=== PATIENT | female | born 1930 | race Caucasian/White ===

== ENCOUNTER 2017-10-16 19:46 | Inpatient (IN) | payer OTHER ==
--- NOTE | 2017-10-16 22:24 | PDOC ---
History of Present Illness - General History Source: Patient, Family Exam Limitations: No Limitations - History of Present Illness Initial Comments: 10/16/17 22:26 The patient is a 87 year old female, accompanied by family, with a significant past medical history of HTN, diabetes, and HLD who presents to the ED with complaints of generalized weakness and lightheadedness since earlier today. As per family, the patient did not go to orthodoxy this morning secondary to her not feeling well. Around 1pm earlier today, the patient had a sudden onset of generalized weakness and lightheadedness and is unable to walk secondary to feeling lightheaded. Patient reports a sudden onset of right arm and right leg tingling around 3:30pm, that resolved within 45 minutes. Family also states the patient had 5 episodes of vomiting and slight slurred speech since 4pm earlier today. Denies fever or chills. Denies headache. Denies chest pain or shortness of breath. Denies any other symptoms. <Jasmine Crowell - Last Filed: 10/16/17 22:58> <Radha Bailey - Last Filed: 10/17/17 01:24> - General Chief Complaint: Weakness Stated Complaint: WEAKNESS Time Seen by Provider: 10/16/17 21:44 Past History <Jasmine Crowell - Last Filed: 10/16/17 22:58> - Past Medical History COPD: No Dementia: Yes Diabetes: Yes HTN: Yes Hypercholesterolemia: Yes - Immunization History Immunization Up to Date: Yes - Suicide/Smoking/Psychosocial Hx Smoking History: Never smoked Have you smoked in the past 12 months: No Hx Alcohol Use: No Drug/Substance Use Hx: No Substance Use Type: None <Radha Bailey - Last Filed: 10/17/17 01:24> - Past Medical History Allergies/Adverse Reactions: Allergies Allergy/AdvReac Type Severity Reaction Status Date / Time No Known Allergies Allergy Verified 10/16/17 19:54 Home Medications: Ambulatory Orders Metformin HCl 500 mg PO BID 10/16/15 Simvastatin 10 mg PO DAILY 10/16/15 Ondansetron [Zofran *Odt*] 4 mg SL TID #30 od.tablet 10/17/15 Review of Systems - Review of Systems Able to Perform ROS?: Yes Comments:: 10/16/17 22:26 CONSTITUTIONAL: + generalized weakness Absent: fever, chills, diaphoresis, malaise, loss of appetite HEENT: Absent: rhinorrhea, nasal congestion, throat pain, throat swelling, difficulty swallowing, mouth swelling, ear pain, eye pain, visual Changes CARDIOVASCULAR: Absent: chest pain, syncope, palpitations, irregular heart rate, lightheadedness , peripheral edema RESPIRATORY: Absent: cough, shortness of breath, dyspnea with exertion, orthopnea, wheezing, stridor, hemoptysis GASTROINTESTINAL: + vomiting Absent: abdominal pain, abdominal distension, diarrhea, constipation, melena, hematochezia GENITOURINARY: Absent: dysuria, frequency, urgency, hesitancy, hematuria, flank pain, genital pain MUSCULOSKELETAL: Absent: myalgia, arthralgia, joint swelling SKIN: Absent: rash, itching, pallor HEMATOLOGIC/IMMUNOLOGIC: Absent: easy bleeding, easy bruising, lymphadenopathy, frequent infections ENDOCRINE: Absent: unexplained weight gain, unexplained weight loss, heat intolerance, cold intolerance NEUROLOGIC: + lightheadedness, arm and leg tingling, unsteady gait, slurred speech Absent: headache, seizure, mental status changes, bladder or bowel incontinence PSYCHIATRIC: Absent: anxiety, depression, suicidal or homicidal ideation, hallucinations. All Other Systems: Reviewed and Negative <Jasmine Crowell - Last Filed: 10/16/17 22:58> *Physical Exam - Vital Signs Last Vital Signs Temp Pulse Resp BP Pulse Ox 97.4 F L 70 18 143/59 96 10/16/17 19:50 10/16/17 19:50 10/16/17 19:50 10/16/17 19:50 10/16/17 19:50 - Physical Exam Comments: 10/16/17 22:26 GENERAL: + thin Awake and alert. No acute distress. HEENT: Normocephalic, atraumatic. PERRLA, EOMI. No conjunctival pallor. Sclera are non- icteric. Moist mucous membranes. Oropharynx is clear. NECK: Supple. Full ROM. No JVD. Carotid pulses 2+ and symmetric, without bruits. No thyromegaly. No lymphadenopathy. CARDIOVASCULAR: Regular rate and rhythm. No murmurs, rubs, or gallops. Distal pulses are 2+ and symmetric. PULMONARY: No evidence of respiratory distress. Lungs clear to auscultation bilaterally. No wheezing, rales or rhonchi. ABDOMINAL: Soft. Non-tender. Non-distended. No rebound or guarding. No organomegaly. Normoactive bowel sounds. MUSCULOSKELETAL Normal range of motion at all joints. No bony deformities or tenderness. No CVA tenderness. EXTREMITIES: No cyanosis. No clubbing. No edema. No calf tenderness. No pronator drift. SKIN: Warm and dry. Normal capillary refill. No rashes. No jaundice. NEUROLOGICAL: Alert, awake, appropriate. Cranial nerves 2-12 intact. No deficits to light touch and temperature in face, upper extremities and lower extremities. No motor deficits in the in face, upper extremities and lower extremities. Normoreflexic in the upper and lower extremities. Normal speech. Toes are down- going bilaterally. No facial asymmetry. PSYCHIATRIC: Cooperative. Good eye contact. Appropriate mood and affect. <Jasmine Crowell - Last Filed: 10/16/17 22:58> - Vital Signs Last Vital Signs Temp Pulse Resp BP Pulse Ox 97.4 F L 70 18 143/59 96 10/16/17 19:50 10/16/17 19:50 10/16/17 19:50 10/16/17 19:50 10/16/17 19:50 <Radha Bailey - Last Filed: 10/17/17 01:24> ED Treatment Course - LABORATORY CBC & Chemistry Diagram: 10/16/17 22:15 10/16/17 22:15 - RADIOLOGY Radiograph Interpretation: 10/16/17 22:58 EXAM: CT Head wo IMPRESSION: Mild chronic microvascular ischemic changes. Moderate age related involutional changes. The study is otherwise unremarkable. Reported by: Imaging sediment remediation consultant <Jasmine Crowell - Last Filed: 10/16/17 22:58> - LABORATORY CBC & Chemistry Diagram: 10/16/17 22:15 10/16/17 22:15 - RADIOLOGY Radiology Studies Ordered: Category Date Time Status HEAD CT (STROKE) [CT] Stat CT Scan 10/16/17 21:42 Ordered CHEST X-RAY PORTABLE* [RAD] Stat Radiology 10/16/17 21:43 Ordered <Radha Bailey - Last Filed: 10/17/17 01:24> *DC/Admit/Observation/Transfer - Attestations Scribe Attestion: 10/16/17 22:27 Documentation prepared by Jasmine Crowell, acting as medical director for Radha Bailey MD <Jasmine Crowell - Last Filed: 10/16/17 22:58> - Discharge Dispostion Decision to Admit order: Yes <Radha Bailey - Last Filed: 10/17/17 01:24> Diagnosis at time of Disposition: Hyperglycemia TIA (transient ischemic attack) Qualifiers: Transient cerebral ischemia type: unspecified Qualified Code(s): G45.9 - Transient cerebral ischemic attack, unspecified Vomiting Qualifiers: Vomiting type: unspecified Vomiting Intractability: non-intractable Nausea presence: unspecified Qualified Code(s): R11.10 - Vomiting, unspecified - Referrals Referrals: Clement Covarrubias MD [Primary Care Provider] - - Patient Instructions - Post Discharge Activity NIH Stroke Scale - Last Known Well Date/Time & Onset Date Last Known Well: 10/16/17 Time Last Known Well: 13:00 - Initial Evaluation Level of consciousness: Alert Ask patient the month and their age: Answers both correctly Ask patient to open & close eyes; make fist and let go: Obeys both correctly Best gaze (horizontal eye movement): Normal Visual field testing: No visual field loss Facial paresis (Show teeth/raise eyebrows/close eyes tight): Normal symmetrical movement Motor Function: Left Arm: Normal Motor Function: Right Arm: Normal (extends arm 90 (or 45) degrees for 10 seconds without drift Motor Function: Left Leg: Normal (extends leg 30 degrees for 5 seconds without drift) Motor Function: Right Leg: Normal (extends leg 30 degrees for 5 seconds without drift) Limb Ataxia: No ataxia Sensory(Use pinprick test arms,legs,trunk,face/side to side): Normal Best language (Describe picture, name items, read sentences): No Aphasia Dysarthria (read several words): Normal articulation Extinction and Inattention: No abnormality - Total Score NIH Stroke Scale Score: 0 <Radha Bailey - Last Filed: 10/17/17 01:24>
[2017-10-16 22:35] LABS: BASO % 0.2 % (0-2.0); HEMATOCRIT 39.5 % (32.4-45.2); HEMOGLOBIN 13.3 GM/dL (10.7-15.3); LYMPH % 7.9 % (8-40); MCH 30.4 pg (25.7-33.7); MCHC 33.6 g/dl (32.0-36.0); MEAN CELL VOLUME 90.5 fl (80-96); MEAN PLT VOLUME 9.4 fl (7.5-11.1); MONO % 2.8 % (3.8-10.2); NEUT % 89.1 % (42.8-82.8); PLATELET COUNT 171 K/MM3 (134-434); RBC 4.36 M/mm3 (3.60-5.2); RDW 13.3 % (11.6-15.6); WHITE BLOOD COUNT 8.7 K/mm3 (4.0-10.0)
[2017-10-16] MEDS: SODIUM CHLORIDE 1,000 ML IV SCH (22:43)
[2017-10-16 22:57] LABS: ALBUMIN 3.9 g/dl (3.4-5.0); ANION GAP 9 (8-16); BILIRUBIN,TOTAL 0.5 mg/dL (0.2-1.0); BLOOD UREA NITROGEN 20 mg/dL (7-18); CHLORIDE 102 mmol/L (98-107); CHOLESTEROL 139 mg/dL (50-200); CO2 26 mmol/L (21-32); CREATININE 0.9 mg/dL (0.55-1.02); POTASSIUM 4.3 mmol/L (3.5-5.1); SGOT/AST 19 U/L (15-37); SGPT/ALT 20 U/L (12-78); SODIUM 137 mmol/L (136-145); TOT PROT 7.7 g/dl (6.4-8.2); TRIGLYCERIDES 102 mg/dL (35-160)
[2017-10-16 22:58] LABS: ALK PHOS 64 U/L (45-117); HDL CHOLESTEROL 52 mg/dL (40-60)
[2017-10-16 22:59] LABS: GLUCOSE,RANDOM 340 mg/dL (74-106)
[2017-10-16 23:20] LABS: INR 1.17 (0.82-1.09); PROTHROMBIN TIME (PATIENT) 13.2 SEC (9.7-13.0)
--- NOTE | 2017-10-16 23:26 | PDOC ---
History of Present Illness - General Chief Complaint: Weakness Stated Complaint: WEAKNESS Time Seen by Provider: 10/16/17 21:44 Past History - Past Medical History Allergies/Adverse Reactions: Allergies Allergy/AdvReac Type Severity Reaction Status Date / Time No Known Allergies Allergy Verified 10/16/17 19:54 Home Medications: Ambulatory Orders Metformin HCl 500 mg PO BID 10/16/15 Simvastatin 10 mg PO DAILY 10/16/15 COPD: No Dementia: Yes Diabetes: Yes HTN: Yes Hypercholesterolemia: Yes - Immunization History Immunization Up to Date: Yes - Suicide/Smoking/Psychosocial Hx Smoking History: Never smoked Have you smoked in the past 12 months: No Hx Alcohol Use: No Drug/Substance Use Hx: No Substance Use Type: None *Physical Exam - Vital Signs Last Vital Signs Temp Pulse Resp BP Pulse Ox 97.4 F L 70 18 143/59 96 10/16/17 19:50 10/16/17 19:50 10/16/17 19:50 10/16/17 19:50 10/16/17 19:50 ED Treatment Course - LABORATORY CBC & Chemistry Diagram: 10/16/17 22:15 10/16/17 22:15 - ADDITIONAL ORDERS Additional order review: Laboratory Results 10/16/17 10/16/17 22:15 22:15 PT with INR 13.20 H INR 1.17 H Sodium 137 Potassium 4.3 Chloride 102 Carbon Dioxide 26 Anion Gap 9 BUN 20 H Creatinine 0.9 Creat Clearance w eGFR 58.95 Random Glucose 340 H* Calcium 9.0 Total Bilirubin 0.5 AST 19 ALT 20 Alkaline Phosphatase 64 Creatine Kinase 53 Troponin I < 0.02 Total Protein 7.7 Albumin 3.9 Triglycerides 102 Cholesterol 139 Total LDL Cholesterol 77 HDL Cholesterol 52 10/16/17 22:15 RBC 4.36 MCV 90.5 MCHC 33.6 RDW 13.3 MPV 9.4 Neutrophils % 89.1 H Lymphocytes % 7.9 L D Monocytes % 2.8 L Eosinophils % 0.0 D Basophils % 0.2 - RADIOLOGY Radiology Studies Ordered: Category Date Time Status HEAD CT (STROKE) [CT] Stat CT Scan 10/16/17 21:42 Taken CHEST X-RAY PORTABLE* [RAD] Stat Radiology 10/16/17 21:43 Ordered *DC/Admit/Observation/Transfer Diagnosis at time of Disposition: TIA (transient ischemic attack), Hyperglycemia, Vomiting - Referrals - Patient Instructions - Post Discharge Activity tPA Exclusion checklist 3-4.5h - Time Elapsed Date last known well: 10/16/17 Time last known well: 13:00 Elaspsed time: 1 Day(s) and 11 Hour(s) and 35 Minutes - Thrombolytic Therapy Candidate Is patient eligible for thrombolytic therapy: No - Exclusion Criteria 3-4.5 hr SBP greater than 185 or DBP greater than 110mmHg despite tx: No Recent IC/spinal surgery,head trauma or stroke<3mos.: No Hx IC hemorrhage, IC neoplasm, AV malformation or aneurysm: No Active internal bleeding: No Blding diathesis(low plt ct, inc PTT,INR>1.7 or use of NOAC): No Symptoms suggest subarachnoid hemorrhage: No CT demonstrates multilobar infarct(>1/3 cerebral hemiphere): No Arterial puncture at noncompressible site in previous 7 days: No Blood glucose concentration less than 50mg/dL (2.7mmol/L): No - Relative Exclusion Criteria 3-4.5 hr Life expectancy <1 yr or severe co-morbid illness: No : No Patient/family refused: No Rapid improvement: Yes Stroke severity too mild: Yes Recent acute DE (w/in previous 3 months): No Seizure at onset with postictal residual neuro impairments: No Major surgery or serious trauma w/in previous 14 days: No Recent GI or hemorrhage (w/in previous 21 days): No - Add'l Relative Exclusion 3-4.5 hr Age > 80: Yes Hx of both diabetes AND prior ischemic stroke: No Taking an oral anticoagulant regardless of INR: No NIHSS >25: No - Ineligibility reason(s) Reasons No tPA given: See reason(s) noted above (no focal neuro deficits upon arrival)
[2017-10-16 23:28] LABS: URINE APPEARANCE CLEAR; URINE BILIRUBIN NEGATIVE (<2.0 mg/dL); URINE COLOR STRAW; URINE GLUCOSE (UA) 3+ (NEGATIVE); URINE KETONE 1+ (NEGATIVE); URINE LEUK ESTERASE NEGATIVE (NEGATIVE); URINE NITRITE NEGATIVE (NEGATIVE); URINE PROTEIN NEGATIVE (NEGATIVE); URINE UROBILINOGEN NEGATIVE mg/dL (0.2-1.0)
[2017-10-17] MEDS ORDERED: ASPIRIN 81 MG CHEWABLE TABLETS PO ONE (01:27)
[2017-10-17] MEDS ORDERED: ASPIRIN 81 MG CHEWABLE TABLETS ONE (01:44)
[2017-10-17] MEDS ORDERED: ONDANSETRON 4 MG/2 ML VIAL IVPUSH ONE (01:51)
[2017-10-17] MEDS ORDERED: ONDANSETRON 4 MG/2 ML VIAL ONE (01:59)
[2017-10-17] MEDS: ONDANSETRON 4 MG/2 ML VIAL IVPUSH SCH ×3 (10:00→21:09)
--- NOTE | 2017-10-17 10:01 | CONSULT ---
Consult - text type - Consultation Consultation Note: Neurology History of Present Illness The patient is a 87 year old female, accompanied by family, with a significant past medical history of HTN, diabetes, and HLD who presents to the ED with reprotedly with complaints of generalized weakness and lightheadedness. As per notes, the patient did not go to orthodoxy this morning secondary to her not feeling well. Around 1pm earlier Tuesday, the patient had a sudden onset of generalized weakness and lightheadedness and is unable to walk secondary to feeling lightheaded. There was mention of sudden onset of right arm and right leg tingling around 3:30pm, that resolved within 45 minutes. Family also states the patient had 5 episodes of vomiting and slight slurred speech. She came to the hospital and was not considered TPA candidate as symptoms resolved. 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 Asked grandson this morning if she was taking ASA and states she does not. Started her on ASA 81, ordered MRI, Carotid Doppler, Echo, speech eval, PT. Of note her sugar was elevated to almost 350 and discussed this can cause significant neurologic changes that can mimic CVA like symptoms. Discussed with primary as well. - General Chief Complaint: Weakness Stated Complaint: WEAKNESS Time Seen by Provider: 10/16/17 21:44 Past History - Past Medical History COPD: No Dementia: Yes Diabetes: Yes HTN: Yes Hypercholesterolemia: Yes - Immunization History Immunization Up to Date: Yes - Suicide/Smoking/Psychosocial Hx Smoking History: Never smoked Have you smoked in the past 12 months: No Hx Alcohol Use: No Drug/Substance Use Hx: No Substance Use Type: None - Past Medical History Allergies/Adverse Reactions: Allergies Allergy/AdvReac Type Severity Reaction Status Date / Time No Known Allergies Allergy Verified 10/16/17 19:54 Home Medications: Ambulatory Orders Metformin HCl 500 mg PO BID 10/16/15 Simvastatin 10 mg PO DAILY 10/16/15 Ondansetron [Zofran *Odt*] 4 mg SL TID #30 od.tablet 10/17/15 Review of Systems CONSTITUTIONAL: + generalized weakness Absent: fever, chills, diaphoresis, malaise, loss of appetite HEENT: Absent: rhinorrhea, nasal congestion, throat pain, throat swelling, difficulty swallowing, mouth swelling, ear pain, eye pain, visual Changes CARDIOVASCULAR: Absent: chest pain, syncope, palpitations, irregular heart rate, lightheadedness , peripheral edema RESPIRATORY: Absent: cough, shortness of breath, dyspnea with exertion, orthopnea, wheezing, stridor, hemoptysis GASTROINTESTINAL: + vomiting Absent: abdominal pain, abdominal distension, diarrhea, constipation, melena, hematochezia GENITOURINARY: Absent: dysuria, frequency, urgency, hesitancy, hematuria, flank pain, genital pain MUSCULOSKELETAL: Absent: myalgia, arthralgia, joint swelling SKIN: Absent: rash, itching, pallor HEMATOLOGIC/IMMUNOLOGIC: Absent: easy bleeding, easy bruising, lymphadenopathy, frequent infections ENDOCRINE: Absent: unexplained weight gain, unexplained weight loss, heat intolerance, cold intolerance NEUROLOGIC: + lightheadedness, arm and leg tingling, unsteady gait, slurred speech Absent: headache, seizure, mental status changes, bladder or bowel incontinence PSYCHIATRIC: Absent: anxiety, depression, suicidal or homicidal ideation, hallucinations. All Other Systems: Reviewed and Negative *Physical Exam Vital Signs Period Temp Pulse Resp BP Sys/Campbell Pulse Ox Last 24 Hr 97.4 F-97.8 F 66-70 18-18 129-143/56-59 96-99 Awake and alert. No acute distress. HEENT: Normocephalic, atraumatic. PERRLA, EOMI. No conjunctival pallor. Sclera are non- icteric. Moist mucous membranes. Oropharynx is clear. NECK: Supple. Full ROM. No JVD. Carotid pulses 2+ and symmetric, without bruits. No thyromegaly. No lymphadenopathy. CARDIOVASCULAR: Regular rate and rhythm. No murmurs, rubs, or gallops. Distal pulses are 2+ and symmetric. PULMONARY: No evidence of respiratory distress. Lungs clear to auscultation bilaterally. No wheezing, rales or rhonchi. ABDOMINAL: Soft. Non-tender. Non-distended. No rebound or guarding. No organomegaly. Normoactive bowel sounds. MUSCULOSKELETAL Normal range of motion at all joints. No bony deformities or tenderness. No CVA tenderness. EXTREMITIES: No cyanosis. No clubbing. No edema. No calf tenderness. No pronator drift. SKIN: Warm and dry. Normal capillary refill. No rashes. No jaundice. NEUROLOGICAL: Alert, awake, appropriate. Slight R facial droop. No deficits to light touch and temperature in face, upper extremities and lower extremities. No motor deficits in the in face, upper extremities and lower extremities. Normoreflexic in the upper and lower extremities. Normal speech. Toes are down-going bilaterally. No facial asymmetry. PSYCHIATRIC: Cooperative. Good eye contact. Appropriate mood and affect. CBCD WBC 8.7 K/mm3 (4.0-10.0) 10/16/17 22:15 RBC 4.36 M/mm3 (3.60-5.2) 10/16/17 22:15 Hgb 13.3 GM/dL (10.7-15.3) 10/16/17 22:15 Hct 39.5 % (32.4-45.2) 10/16/17 22:15 MCV 90.5 fl (80-96) 10/16/17 22:15 MCHC 33.6 g/dl (32.0-36.0) 10/16/17 22:15 RDW 13.3 % (11.6-15.6) 10/16/17 22:15 Plt Count 171 K/MM3 (134-434) 10/16/17 22:15 MPV 9.4 fl (7.5-11.1) 10/16/17 22:15 CMP Sodium 137 mmol/L (136-145) 10/16/17 22:15 Potassium 4.3 mmol/L (3.5-5.1) 10/16/17 22:15 Chloride 102 mmol/L (98-107) 10/16/17 22:15 Carbon Dioxide 26 mmol/L (21-32) 10/16/17 22:15 Anion Gap 9 (8-16) 10/16/17 22:15 BUN 20 mg/dL (7-18) H 10/16/17 22:15 Creatinine 0.9 mg/dL (0.55-1.02) 10/16/17 22:15 Creat Clearance w eGFR 58.95 (>60) 10/16/17 22:15 Random Glucose 340 mg/dL (74-106) H* 10/16/17 22:15 Calcium 9.0 mg/dL (8.5-10.1) 10/16/17 22:15 Total Bilirubin 0.5 mg/dL (0.2-1.0) 10/16/17 22:15 AST 19 U/L (15-37) 10/16/17 22:15 ALT 20 U/L (12-78) 10/16/17 22:15 Alkaline Phosphatase 64 U/L (45-117) 10/16/17 22:15 Total Protein 7.7 g/dl (6.4-8.2) 10/16/17 22:15 Albumin 3.9 g/dl (3.4-5.0) 10/16/17 22:15 CARDIAC ENZYMES Creatine Kinase 53 IU/L (26-192) 10/16/17 22:15 Troponin I < 0.02 ng/ml (0.00-0.05) 10/16/17 22:15 - RADIOLOGY Radiograph Interpretation: EXAM: CT Head wo IMPRESSION: Mild chronic microvascular ischemic changes. Moderate age related involutional changes. 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 As per notes, the patient did not go to orthodoxy this morning secondary to her not feeling well. Around 1pm earlier Tuesday, the patient had a sudden onset of generalized weakness and lightheadedness and is unable to walk secondary to feeling lightheaded. There was mention of sudden onset of right arm and right leg tingling around 3:30pm, that resolved within 45 minutes. Family also states the patient had 5 episodes of vomiting and slight slurred speech. She came to the hospital and was not considered TPA candidate as symptoms resolved. 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 Started her on ASA 81, not taking at home Ordered MRI, Ordered Carotid Doppler, Echo, Ordered Speech eval PT ordered, as tolerated Glucose almost 350, can mimic CVA like symptoms, tighter glycemic control, A1C goal of <6 Monitor LDL (currently 77), continue Statin Monitor BP, goal range <160/90 for now, <130/80 as outpatient Hydration as tolerated, appears malnourished N/V, consider GI evaluation if indicated DVT ppx Discussed with primary as well.
[2017-10-17] MEDS: ASPIRIN COATED 81 MG TABLET.EC PO SCH (10:04)
--- NOTE | 2017-10-17 10:05 | PN ---
Progress Note, Physician Chief Complaint: pt seen in the ER C/o [facility] neurology seen the PT and rec MRI awaiting for MRI - Current Medication List Current Medications: Active Medications Aspirin (Ecotrin -) 81 mg PO DAILY TRISTAN Atorvastatin Calcium (Lipitor -) 10 mg PO HS TRISTAN Sodium Chloride (Normal Saline -) 1,000 mls @ 42 mls/hr IV ASDIR TRISTAN Last Admin: 10/16/17 22:43 Dose: 42 mls/hr Metformin HCl (Glucophage -) 500 mg PO BID@0700,1630 TRISTAN Ondansetron HCl (Zofran Injection) 4 mg IVPUSH Q6H TRISTAN - Objective Vital Signs: Vital Signs Temperature 97.8 F 10/17/17 07:05 Pulse Rate 66 10/17/17 07:05 Respiratory Rate 18 10/17/17 07:05 Blood Pressure 129/56 10/17/17 07:05 O2 Sat by Pulse Oximetry (%) 99 10/17/17 07:05 Constitutional: Yes: No Distress Eyes: Yes: Conjunctiva Clear HENT: Yes: Atraumatic Neck: Yes: Supple, Trachea Midline Cardiovascular: Yes: Regular Rate and Rhythm Respiratory: Yes: Regular, CTA Bilaterally Gastrointestinal: Yes: Normal Bowel Sounds, Soft, Vomiting Edema: No Peripheral Pulses WNL: Yes Neurological: Yes: Alert, Oriented, Cran Nerves II-XII Intact, Tingling ...Motor Strength: WNL Labs: CBC, BMP 10/16/17 22:15 10/16/17 22:15 INR, PTT INR 1.17 (0.82-1.09) H 10/16/17 22:15 - ....Imaging Chest X-ray: Report Reviewed Cat Scan: Report Reviewed MRI: Pending Assessment/Plan TIA Uncontrooled blood sugar Vomiting PLAN Awaiting MRI PT Zofran monitor Blood sugar Continue home meds
--- NOTE | 2017-10-17 11:45 | HP ---
DATE OF ADMISSION: DATE OF DICTATION: 10/17/2017 HISTORY: The patient is an 87-year-old female with a medical history of hypertension, diabetes, hyperlipidemia who came to the emergency room with the complaints of generalized weakness and lightheadedness since yesterday morning. As per the family, the patient yesterday around 1 PM yesterday developed sudden onset of generalized weakness and lightheadedness, and he was unable to walk secondary to feeling lightheaded. The patient also complains of sudden onset of right leg tingling around 3:30 PM yesterday that resolved within 45 minutes. After that, the patient complained of 5 episodes of vomiting and slight slurred speech yesterday. Denies any chest pain, headache, palpitations. No shortness of breath. PAST MEDICAL HISTORY: History of diabetes, hypertension, hypercholesterolemia. PAST SURGICAL HISTORY: History of hysterectomy. ALLERGIES: No known drug allergies. PERSONAL HISTORY: Nothing significant. Lives with the family. MEDICATIONS: The patient is on metformin 500 mg p.o. b.i.d., simvastatin 10 mg p.o. daily, and Zofran. REVIEW OF SYSTEMS: Constitutional: Generalized weakness present. No fever, no chills. Head and Neck: No cough, no rhinorrhea. Cardiovascular: No chest pain, no syncope, no palpitations. Gastrointestinal: Vomiting present. Respiratory: No cough. No shortness of breath. Genitourinary: No dysuria, no frequency, no urgency, no hesitancy. Musculoskeletal: Slight weakness. Hematologic: Nothing significant. Neurologic: Lightheadedness. Right arm and leg tingling. A slight unsteady gait. Absent headache. PHYSICAL EXAMINATION: Vital Signs: On examination of the patient in the emergency room, temperature 97.4, pulse 70 per minute, respirations 18, blood pressure 143/59, pulse 96. General: The patient is alert and oriented in no apparent distress. HEENT: Normocephalic and atraumatic. Pupils equally reactive to light and accommodation. Neck: Supple. No JVD. Full range of movement. Cardiovascular: First and 2nd sound normal. No murmur. Respiratory: Bilateral breath sounds normal. Abdomen: Soft. No tenderness. No distention. Bowel sounds present. Musculoskeletal: Normal range of movement. Extremities: No edema. Neurologic: The patient is alert, awake. Cranial nerves 2-12 are intact. No definite deficits of light touch. Temperature normal. No motor or sensory deficit. Reflexes normal. Toes are downgoing bilaterally. No facial asymmetry. Psychiatric: The patient is cooperative with eye contact. Appropriate mood and affect. LABORATORIES: CBC: WBC 8.7, hemoglobin 13.3, hematocrit 39.5, platelets 171. Chemistry: Sodium 137, potassium 4.3, chloride 102, bicarbonate 26, BUN 20, creatinine 0.9, sugar 340, lactic acid 1.7. ALT and AST normal. Cardiac enzymes x1 normal. Lipid profile: Triglycerides 102, total cholesterol 139, HDL 22, LDL 77. PT 13.2, INR 1.12. Chest x-ray: Scoliosis. Large heart. Prominent high and elevated left hemidiaphragm with some new atelectatic changes and pleural reaction at the lung base. Maybe right mid lung peripheral granuloma. CT of the head shows no evidence of acute intracranial hemorrhage, edema, midline shift, mass affect, or skull fracture. No CT evidence of acute ischemic changes, old infarct. The head of the left caudate nucleus, chronic, subcortical white matter changes. HOSPITAL COURSE: The patient was given IV fluid, Zofran, and aspirin in the emergency room. The patient admitted to the floor. ADMITTING DIAGNOSES: 1. Transient ischemic attack.,R/o CVA 2. Uncontrolled diabetes. 3. Generalized weakness. PLAN: Neurology consult. Continue home medications. Monitor blood sugar. Neurology consult. Continue aspirin. Physical therapy. The patient is stable. JESSICA ENGLAND M.D. [id number] MTDD
--- NOTE | 2017-10-17 11:56 | CONSULT ---
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), Medical Record Limitations to Obtaining History: Language Barrier - Smoking History Smoking history: Never smoked Have you smoked in the past 12 months: No - Alcohol/Substance Use Hx Alcohol Use: No History - Admission Reason For Visit: TRANSIENT CEREBRAL ISCHEMIA HYPERGLYCEMI - Diagnostics CT Scan: Report Reviewed MRI: Pending - General Mental Status: Alert and Oriented, Awake and Alert, Able to Follow Commands Attention: Intact Ability to Follow Directions: Good Head/Neck Control: Good - Hearing Hearing: Functional Speech Evaluation - Communication Communication: Yes: Within Normal Limits Oral Expression Ability: Yes: Mild Impairment - Speech Production Able to Make Needs Known: Yes: Mildly Impaired Intelligibility: Yes: Mildly Impaired - Speech Characteristics Voice Loudness: Mildly Soft/Quiet Voice Pitch: Yes: Normal Voice Phonatory-based Quality: Yes: Normal Nasal Resonance: Normal Articulation: Yes: Imprecise (mild) - Language/Auditory Comprehension Follows: Yes: 1 Stage Simple Commands - Language/Verbal Expression Able to Respond to Simple Queries: Yes: WNL Able to Communicate Wants and Needs: Yes: WNL Functional Communication Status: Yes: WNL - Swallow Evaluation/Bedside Assessment Current Nutritional Intake: Regular, Thin Liquids, Other (Diet not initiated but ordered. Vomited after drinking water earlier, per pt's grandson) Oral Secretions: Yes: WFL Dentition: Yes: Missing Teeth Facial Symmetry at Rest: Facial Droop Right (slight, noted mostly during speech production) Facial Symmetry on Retraction: Facial Droop Right (slight) Jaw Position: Closed at Rest Pucker Lips: Droops Right (slight) Lingual Movement: Symmetric Lingual Movement Strgth Against Opposition: Reduced Velopharyngeal Movement: Normal Laryngeal Movement: Able to Palpate Rate of Intake: WFL Labial Seal: WFL Oral Prep Time: WFL A-P Transit: WFL Pocketing: None Timing of Swallow: Delayed Coughing/Throat Clear: No (c/o puree sticking in pharynx) Change in Voice: No Recommendations - Speech Evaluation, Impression/Plan Impression: Mild r facial, noted most easily while speaking. Mild dysarthria. Leaning to right? right handshake strong and can elevate and maintain both UE' s.c/o puree sticking in pharynx. No cough with single sips if water. Vomited earlier with water, but tolerated during my assessment. Fully oriented but c/o feeling weak. Denies visual changes. No drooling. MRI pending. - Dysphagia Impressions/Plan Dysphagia Impressions: Mild Impairment, Ongoing Evaluation *Silent aspiration: cannot be R/O at bedside Dysphagia Treatment Plan: Chin Tuck/Down, Elevate HOB during feed Recommendations: Modified Barium Swallow (if deficits continue) - Recommendations Diet Consistency: Dysphagia Pureed (yogurt, pudding, ice cream, soup, as tolerated. If c/o food sticking, hold po.) Medication Administration: Crushed with applesauce Liquids: Thin Liquids Supplement: Glucerna
--- NOTE | 2017-10-17 13:01 | CON.CARD ---
Consult Consult Specialty:: Cardiology Referred by:: Dr. Covarrubias Reason for Consultation:: Cardiac evaluation - History of Present Illness Chief Complaint: Genearlized weakness History of Present Illness: Patient is an 87 year old female of [place] with underlying history of hypertension, hypercholesterolemia and diabetes mellitus who presents with generalized weakness and lightheadedness. Her symptoms occurred yesterday. She was found unable to walk well and was noticed to be leaning toward the right. she also had sudden onset of right arm and right leg tingling and numbness. She also had episode of vomiting and slurred speech. 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 History of obtained from her family as there is a language barrier. She denies chest pain,shortness of breath or palpitations. Denies fever or chills. Denies paroxysmal nocturnal dyspne or orthopnea. Denies headache or lightheadedness. She does not appear to have had a syncopal episode - History Source History Provided By: Patient, Family Member, Medical Record Limitations to Obtaining History: Clinical Condition - Past Medical History Cardio/Vascular: Yes: HTN, Hyperlipdemia Endocrine: Yes: Diabetes Mellitus - Past Surgical History Past Surgical History: Yes: Cataract Removal, Hysterectomy - Alcohol/Substance Use Hx Alcohol Use: No - Smoking History Smoking history: Never smoked Have you smoked in the past 12 months: No Home Medications - Allergies Allergies/Adverse Reactions: Allergies Allergy/AdvReac Type Severity Reaction Status Date / Time No Known Allergies Allergy Verified 10/16/17 19:54 - Home Medications Home Medications: Ambulatory Orders Metformin HCl 500 mg PO BID 10/16/15 Simvastatin 10 mg PO DAILY 10/16/15 Family Disease History - Family Disease History Family History: Unremarkable Review of Systems - Review of Systems Constitutional: denies: Chills, Fever Cardiovascular: denies: Chest Pain, Palpitations, Shortness of Breath Respiratory: denies: Cough, Hemoptysis, Orthopnea, PND, SOB, SOB on Exertion Neurological: reports: Change in Speech, Numbness, Unsteady Gait, Weakness. denies: Dizziness, Headache, Seizure, Syncope Vital Signs: Vital Signs Temperature 97.8 F 10/17/17 07:05 Pulse Rate 66 10/17/17 07:05 Respiratory Rate 18 10/17/17 07:05 Blood Pressure 129/56 10/17/17 07:05 O2 Sat by Pulse Oximetry (%) 99 10/17/17 07:05 HENT: Yes: Atraumatic Neck: Yes: Supple Respiratory: Yes: Diminished Gastrointestinal: Yes: Normal Bowel Sounds, Soft. No: Tenderness Cardiovascular: Yes: Regular Rate and Rhythm. No: Gallop JVD: No Carotid Bruit: No PMI: Non-Displaced Heart Sounds: Yes: S1, S2 Murmur: No: Systolic Murmur Edema: No - Other Data Labs, Other Data: CBC, BMP 10/16/17 22:15 10/16/17 22:15 INR, PTT INR 1.17 (0.82-1.09) H 10/16/17 22:15 Troponin, BNP 10/16/17 22:15 Troponin I < 0.02 Echo: Pending Imaging - Results Chest X-ray: Report Reviewed (Cardiomegaly) Cat Scan: Report Reviewed (Head CT: Old caudate nucleus infarct) Ultrasound: Report Reviewed (Carotid US: 50-60% left ICA stenosis) EKG: Report Reviewed Problem List - Problems (1) CVA (cerebral vascular accident) Code(s): I63.9 - CEREBRAL INFARCTION, UNSPECIFIED Qualifiers: CVA mechanism: unspecified Qualified Code(s): I63.9 - Cerebral infarction, unspecified (2) HTN (hypertension) Code(s): I10 - ESSENTIAL (PRIMARY) HYPERTENSION Qualifiers: Hypertension type: essential hypertension Qualified Code(s): I10 - Essential (primary) hypertension (3) Hypercholesterolemia Code(s): E78.00 - PURE HYPERCHOLESTEROLEMIA, UNSPECIFIED (4) Diabetes mellitus Code(s): E11.9 - TYPE 2 DIABETES MELLITUS WITHOUT COMPLICATIONS (5) TIA (transient ischemic attack) Code(s): G45.9 - TRANSIENT CEREBRAL ISCHEMIC ATTACK, UNSPECIFIED Qualifiers: Transient cerebral ischemia type: unspecified Qualified Code(s): G45.9 - Transient cerebral ischemic attack, unspecified Assessment/Plan 1. CVA/TIA with right sided weakness 2. Hypertension 3. Hypercholesterolemia 4. Diabetes mellitus 5. Carotid artery disease PLAN: 1.Continue Statin therapy 2. Add ASA 3. Consider ACEI or ARB if tolerated 4. Continue with diabetes mellitus regimen 5. Transthoracic echocardiograhy to assess LV/RV and valvular function 6. Neuro input noted 7. Carotid Doppler noted Further plans are to follow Del Maharaj MD
[2017-10-17] MEDS: metFORMIN HCL 500 MG TABLET (FP) PO SCH (18:33)
[2017-10-17 18:48] VITALS: BMI 19.1
[2017-10-17] MEDS: ATORVASTATIN CA 10 MG TABLET (FP) PO SCH (21:09)
[2017-10-17] MEDS: INSULIN SLIDING SCALE (NOVOLOG) 1 VIAL SQ SCH (21:10)
--- NOTE | 2017-10-17 23:45 | EKG ---
Test Reason : Blood Pressure : / mmHG Vent. Rate : 071 BPM Atrial Rate : 071 BPM P-R Int : 214 ms QRS Dur : 084 ms QT Int : 430 ms P-R-T Axes : 056 023 056 degrees QTc Int : 467 ms SINUS RHYTHM WITH 1ST DEGREE A-V BLOCK POSSIBLE LEFT ATRIAL ENLARGEMENT BORDERLINE ECG WHEN COMPARED WITH ECG OF 17-OCT-2015 00:10, PREMATURE VENTRICULAR COMPLEXES ARE NO LONGER PRESENT Confirmed by BRIGIDA IRIZARRY, JESIKA ([id number]) on 10/17/2017 11:45:10 PM Referred By: Confirmed By:JESIKA ALLRED MD
[2017-10-18] MEDS: SODIUM CHLORIDE 1,000 ML IV SCH ×2 (05:31→23:49)
[2017-10-18] MEDS: ONDANSETRON 4 MG/2 ML VIAL IVPUSH SCH ×4 (05:31→21:00)
[2017-10-18] MEDS ORDERED: INSULIN (NOVOLOG) ASPART 100 UNITS/ML 10ML VIAL ONE ×3 (06:26→20:45)
[2017-10-18] MEDS: metFORMIN HCL 500 MG TABLET (FP) PO SCH ×2 (06:33→17:21)
[2017-10-18] MEDS: INSULIN SLIDING SCALE (NOVOLOG) 1 VIAL SQ SCH ×4 (06:33→21:01)
[2017-10-18 06:46] LABS: BASO % 0.3 % (0-2.0); EOS % 0.7 % (0-4.5); HEMATOCRIT 40.3 % (32.4-45.2); HEMOGLOBIN 13.6 GM/dL (10.7-15.3); LYMPH % 16.1 % (8-40); MCHC 33.8 g/dl (32.0-36.0); MEAN CELL VOLUME 91.8 fl (80-96); MEAN PLT VOLUME 9.7 fl (7.5-11.1); MONO % 7.2 % (3.8-10.2); NEUT % 75.7 % (42.8-82.8); PLATELET COUNT 173 K/MM3 (134-434); RBC 4.39 M/mm3 (3.60-5.2); RDW 13.6 % (11.6-15.6); WHITE BLOOD COUNT 9.5 K/mm3 (4.0-10.0)
[2017-10-18 07:09] LABS: ALBUMIN 3.4 g/dl (3.4-5.0); ALK PHOS 48 U/L (45-117); ANION GAP 7 (8-16); BILIRUBIN,TOTAL 0.6 mg/dL (0.2-1.0); BLOOD UREA NITROGEN 16 mg/dL (7-18); CALCIUM 8.4 mg/dL (8.5-10.1); CHLORIDE 107 mmol/L (98-107); CO2 27 mmol/L (21-32); CREATININE 0.9 mg/dL (0.55-1.02); GLUCOSE,RANDOM 215 mg/dL (74-106); MAGNESIUM 1.7 mg/dL (1.8-2.4); POTASSIUM 3.9 mmol/L (3.5-5.1); SGOT/AST 15 U/L (15-37); SGPT/ALT 16 U/L (12-78); SODIUM 141 mmol/L (136-145); TOT PROT 6.9 g/dl (6.4-8.2)
--- NOTE | 2017-10-18 07:11 | PN ---
Progress Note, Physician Chief Complaint: Pt seen and examined Rt sided weakness still present afebrile,alert and oriented,no progression of symptoms C/o generalised michelle neurology seen the PT and rec MRI awaiting for MRI speech and swollow evaluation reprt noted,rec purie diet cardiology report appreciated carotid doppler report noted,Lt internal carotid artery 50_66% stenosis - Current Medication List Current Medications: Active Medications Aspirin (Ecotrin -) 81 mg PO DAILY [facility] Last Admin: 10/17/17 10:04 Dose: 81 mg Atorvastatin Calcium (Lipitor -) 10 mg PO HS [facility] Last Admin: 10/17/17 21:09 Dose: 10 mg Sodium Chloride (Normal Saline -) 1,000 mls @ 42 mls/hr IV ASDIR [facility] Last Admin: 10/18/17 05:31 Dose: 42 mls/hr Insulin Aspart (Novolog Vial Sliding Scale -) 1 vial SQ ACHS [facility] PRN Reason: Protocol Last Admin: 10/18/17 06:33 Dose: 2 units Metformin HCl (Glucophage -) 500 mg PO BID@0700,1630 [facility] Last Admin: 10/18/17 06:33 Dose: 500 mg Ondansetron HCl (Zofran Injection) 4 mg IVPUSH Q6H [facility] Last Admin: 10/18/17 05:31 Dose: 4 mg - Objective Vital Signs: Vital Signs Temperature 98 F 10/18/17 06:19 Pulse Rate 69 10/18/17 06:19 Respiratory Rate 18 10/18/17 06:19 Blood Pressure 166/62 10/18/17 06:19 O2 Sat by Pulse Oximetry (%) 95 10/17/17 21:00 Constitutional: Yes: No Distress Eyes: Yes: Conjunctiva Clear HENT: Yes: Atraumatic Neck: Yes: Supple Cardiovascular: Yes: Regular Rate and Rhythm Respiratory: Yes: Regular, CTA Bilaterally Gastrointestinal: Yes: Normal Bowel Sounds, Soft Genitourinary: Yes: WNL Musculoskeletal: Yes: Other (Rt sided weakness) Extremities: Yes: WNL Edema: No Peripheral Pulses WNL: Yes Neurological: Yes: Alert, Oriented, Cran Nerves II-XII Intact, Weakness (Rt sided mild weakness) Psychiatric: Yes: WNL, Alert Labs: CBC, BMP 10/18/17 06:20 INR, PTT INR 1.17 (0.82-1.09) H 10/16/17 22:15 - ....Imaging Chest X-ray: Report Reviewed Cat Scan: Report Reviewed EKG: Report Reviewed Assessment/Plan TIA/CVA Uncontrooled blood sugar/DM Vomiting resolved PLAN Awaiting MRI PT monitor BP monitor Blood sugar Continue home meds
--- NOTE | 2017-10-18 08:42 | PN ---
Progress Note (short form) - Note Progress Note: Chief Complaint: Events noted, notes reviewed, family member at the bedside, complaining of persistent weakness, denies any chest pain or dyspnea History of Present Illness: Seen nad examined on telemetry. Events noted, notes reviewed, family member at the bedside, complaining of persistent weakness, denies any chest pain or dyspnea Echocardiography revealed normal LV size and function with LVEF 55-60%, severe LA dilatation, modertae MR, AI and TR with no evidence of pulmonary HTN Medications: Current Medications Aspirin (Ecotrin -) 81 mg PO DAILY [facility] Last Admin: 10/17/17 10:04 Dose: 81 mg Atorvastatin Calcium (Lipitor -) 10 mg PO HS [facility] Last Admin: 10/17/17 21:09 Dose: 10 mg Sodium Chloride (Normal Saline -) 1,000 mls @ 42 mls/hr IV ASDIR [facility] Last Admin: 10/18/17 05:31 Dose: 42 mls/hr Insulin Aspart (Novolog Vial Sliding Scale -) 1 vial SQ ACHS [facility] PRN Reason: Protocol Last Admin: 10/18/17 06:33 Dose: 2 units Losartan Potassium (Cozaar -) 50 mg PO DAILY [facility] Metformin HCl (Glucophage -) 500 mg PO BID@0700,1630 [facility] Last Admin: 10/18/17 06:33 Dose: 500 mg Ondansetron HCl (Zofran Injection) 4 mg IVPUSH Q6H [facility] Last Admin: 10/18/17 05:31 Dose: 4 mg Review of Systems - Review of Systems Constitutional: denies: Chills or Fever Cardiovascular: as noted above Respiratory: denies: Cough or Sputum Production Neurological: reports: Change in Speech and Unsteady Gait with Weakness. denies : Dizziness, Headache, Seizure or Syncope Vital Signs: Last Vital Signs Temp Pulse Resp BP Pulse Ox 98 F 69 18 166/62 95 10/18/17 06:19 10/18/17 06:19 10/18/17 06:19 10/18/17 06:19 10/17/17 21:00 Intake & Output 10/15/17 10/16/17 10/17/17 10/18/17 23:59 23:59 23:59 23:59 Intake Total 210 294 Balance 210 294 Weight 95 lb 98 lb HEENT: Atraumatic Neck: Supple Negative JVD Cardiovascular: S1 S2 Regular Rate and Rhythm Respiratory: Diminished Breath Sounds at the Bases with Course Crepitus Left Base Gastrointestinal: Soft Benign Normal Bowel Sounds Ext: No Edema Labs: CBC, BMP 10/18/17 06:20 10/18/17 06:20 Hepatic Panel Total Bilirubin 0.6 mg/dL (0.2-1.0) 10/18/17 06:20 AST 15 U/L (15-37) 10/18/17 06:20 ALT 16 U/L (12-78) 10/18/17 06:20 Alkaline Phosphatase 48 U/L (45-117) 10/18/17 06:20 Albumin 3.4 g/dl (3.4-5.0) 10/18/17 06:20 INR, PTT INR 1.17 (0.82-1.09) H 10/16/17 22:15 Assessment/Plan ASSESSMENT: 1. CVA/TIA with right sided weakness, await MRI (old infarct on CT scan of the head) 2. 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 Hypertension 5. Diabetes mellitus 6. Hypercholesterolemia 7. Carotid artery disease, moderate in severity PLAN: 1. Continue Statin therapy 2. Continue ASA therapy for now but LA dilatation on echocardiography raises the possibility of PAF, pending MRI of the brain recommend extended monitoring vs. implantable loop recorder 3. Continue Cozaar 4. Add B-Blockers 5. Await brain MRI 6. Pending above MRI results carotid artery disease may need to be further evaluated Above was reviewed in detail with the family member at the bedside Shakeel Roper MD
--- NOTE | 2017-10-18 09:00 | PN ---
Progress Note (short form) - Note Progress Note: Neurology History of Present Illness The patient is a 87 year old female, accompanied by family, with a significant past medical history of HTN, diabetes, and HLD who presents to the ED with reprotedly with complaints of generalized weakness and lightheadedness. As per notes, the patient did not go to scientology this morning secondary to her not feeling well. Around 1pm earlier Tuesday, the patient had a sudden onset of generalized weakness and lightheadedness and is unable to walk secondary to feeling lightheaded. There was mention of sudden onset of right arm and right leg tingling around 3:30pm, that resolved within 45 minutes. Family also states the patient had 5 episodes of vomiting and slight slurred speech. She came to the hospital and was not considered TPA candidate as symptoms resolved. 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 Started her on ASA 81, ordered MRI , Carotid Doppler, Echo, speech eval, PT. Of note her sugar was elevated to almost 350 and discussed this can cause significant neurologic changes that can mimic CVA like symptoms. Carotids completed and 50-69% stenosis of L ICA. Echo also completed, normal LV function, EF 55-60%, reviewed with family member at bedside this AM. Active Medications Aspirin (Ecotrin -) 81 mg PO DAILY [facility] Last Admin: 10/17/17 10:04 Dose: 81 mg Atorvastatin Calcium (Lipitor -) 10 mg PO HS [facility] Last Admin: 10/17/17 21:09 Dose: 10 mg Sodium Chloride (Normal Saline -) 1,000 mls @ 42 mls/hr IV ASDIR [facility] Last Admin: 10/18/17 05:31 Dose: 42 mls/hr Insulin Aspart (Novolog Vial Sliding Scale -) 1 vial SQ ACHS [facility] PRN Reason: Protocol Last Admin: 10/18/17 06:33 Dose: 2 units Losartan Potassium (Cozaar -) 50 mg PO DAILY [facility] Metformin HCl (Glucophage -) 500 mg PO BID@0700,1630 [facility] Last Admin: 10/18/17 06:33 Dose: 500 mg Ondansetron HCl (Zofran Injection) 4 mg IVPUSH Q6H [facility] Last Admin: 10/18/17 05:31 Dose: 4 mg *Physical Exam Vital Signs Temperature 98 F 10/18/17 06:19 Pulse Rate 69 10/18/17 06:19 Respiratory Rate 18 05/22/18 06:19 Blood Pressure 166/62 10/18/17 06:19 O2 Sat by Pulse Oximetry (%) 95 10/17/17 21:00 Awake and alert. No acute distress. HEENT: Normocephalic, atraumatic. PERRLA, EOMI. No conjunctival pallor. Sclera are non- icteric. Moist mucous membranes. Oropharynx is clear. NECK: Supple. Full ROM. No JVD. Carotid pulses 2+ and symmetric, without bruits. No thyromegaly. No lymphadenopathy. CARDIOVASCULAR: Regular rate and rhythm. No murmurs, rubs, or gallops. Distal pulses are 2+ and symmetric. PULMONARY: No evidence of respiratory distress. Lungs clear to auscultation bilaterally. No wheezing, rales or rhonchi. ABDOMINAL: Soft. Non-tender. Non-distended. No rebound or guarding. No organomegaly. Normoactive bowel sounds. MUSCULOSKELETAL Normal range of motion at all joints. No bony deformities or tenderness. No CVA tenderness. EXTREMITIES: No cyanosis. No clubbing. No edema. No calf tenderness. No pronator drift. SKIN: Warm and dry. Normal capillary refill. No rashes. No jaundice. NEUROLOGICAL: Alert, awake, appropriate. Slight R facial droop. No deficits to light touch and temperature in face, upper extremities and lower extremities. No motor deficits in the in face, upper extremities and lower extremities. Normoreflexic in the upper and lower extremities. Normal speech. Toes are down-going bilaterally. No facial asymmetry. PSYCHIATRIC: Cooperative. Good eye contact. Appropriate mood and affect. CBCD WBC 9.5 K/mm3 (4.0-10.0) 10/18/17 06:20 RBC 4.39 M/mm3 (3.60-5.2) 10/18/17 06:20 Hgb 13.6 GM/dL (10.7-15.3) 10/18/17 06:20 Hct 40.3 % (32.4-45.2) 10/18/17 06:20 MCV 91.8 fl (80-96) 10/18/17 06:20 MCHC 33.8 g/dl (32.0-36.0) 10/18/17 06:20 RDW 13.6 % (11.6-15.6) 10/18/17 06:20 Plt Count 173 K/MM3 (134-434) 10/18/17 06:20 MPV 9.7 fl (7.5-11.1) 10/18/17 06:20 CMP Sodium 141 mmol/L (136-145) 10/18/17 06:20 Potassium 3.9 mmol/L (3.5-5.1) 10/18/17 06:20 Chloride 107 mmol/L (98-107) 10/18/17 06:20 Carbon Dioxide 27 mmol/L (21-32) 10/18/17 06:20 Anion Gap 7 (8-16) L 10/18/17 06:20 BUN 16 mg/dL (7-18) 10/18/17 06:20 Creatinine 0.9 mg/dL (0.55-1.02) 10/18/17 06:20 Creat Clearance w eGFR 58.95 (>60) 10/18/17 06:20 Calcium 8.4 mg/dL (8.5-10.1) L 10/18/17 06:20 Total Bilirubin 0.6 mg/dL (0.2-1.0) 10/18/17 06:20 AST 15 U/L (15-37) 10/18/17 06:20 ALT 16 U/L (12-78) 10/18/17 06:20 Alkaline Phosphatase 48 U/L (45-117) 10/18/17 06:20 Total Protein 6.9 g/dl (6.4-8.2) 10/18/17 06:20 Albumin 3.4 g/dl (3.4-5.0) 10/18/17 06:20 - RADIOLOGY CT head reviewed Carotid Doppler reviewed Echo Reviewed Plan: 87 year old female, accompanied by family, with a significant past medical history of HTN, diabetes, and HLD who presents to the ED with reprotedly with complaints of generalized weakness and lightheadedness. As per notes, the patient did not go to scientology this morning secondary to her not feeling well. Around 1pm earlier Tuesday, the patient had a sudden onset of generalized weakness and lightheadedness and is unable to walk secondary to feeling lightheaded. There was mention of sudden onset of right arm and right leg tingling around 3:30pm, that resolved within 45 minutes. Family also states the patient had 5 episodes of vomiting and slight slurred speech. She came to the hospital and was not considered TPA candidate as symptoms resolved. 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 Started her on ASA 81, not taking at home Ordered MRI, awaiting completion Reviewed carotid, consider vascular consult though not likely surgical PT tolerated Glucose remains elevated, tighter glycemic control, A1C goal of <6 Monitor LDL (currently 77), continue Statin Monitor BP, goal range <160/90 for now, <130/80 as outpatient Hydration as tolerated, appears malnourished N/V, consider GI evaluation if indicated DVT ppx
[2017-10-18 10:13] LABS: CHOLESTEROL 133 mg/dL (50-200); HDL CHOLESTEROL 48 mg/dL (40-60); TRIGLYCERIDES 219 mg/dL (35-160)
[2017-10-18] MEDS: LOSARTAN POTASSIUM 50 MG TABLET (FP) PO SCH (10:24)
[2017-10-18] MEDS: ASPIRIN COATED 81 MG TABLET.EC PO SCH (10:24)
--- NOTE | 2017-10-18 10:28 | PN ---
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 Regular diet ordered. Pt had bread this am, per family member. Pt c/o it was dry, needing to drink with each bite. May need diet downgrade, Monitor tolerance. If cough , congestion, c/o difficulty, may need MBS to further assess.
[2017-10-18] MEDS: metoPROLOL SUCCINATE 25 MG TAB.SR.24H (FP) PO SCH (10:30)
[2017-10-18] MEDS: MAGNESIUM OXIDE 400 MG TABLET (FP) PO ONE ×2 (10:30→11:15)
[2017-10-18] MEDS ORDERED: MAGNESIUM OXIDE 400 MG TABLET (FP) PO ONE (10:45)
[2017-10-18] MEDS: ACETAMINOPHEN 325 MG TABLET (FP) PO PRN (20:52)
[2017-10-18] MEDS: ATORVASTATIN CA 10 MG TABLET (FP) PO SCH (21:00)
[2017-10-19] MEDS: ONDANSETRON 4 MG/2 ML VIAL IVPUSH SCH ×4 (03:16→21:01)
[2017-10-19] MEDS: metFORMIN HCL 500 MG TABLET (FP) PO SCH ×2 (06:39→17:08)
[2017-10-19] MEDS: INSULIN SLIDING SCALE (NOVOLOG) 1 VIAL SQ SCH ×4 (06:39→21:01)
[2017-10-19] MEDS: glipiZIDE 5 MG TABLET (FP) PO SCH ×2 (06:39→17:08)
[2017-10-19 07:39] LABS: BASO % 0.4 % (0-2.0); EOS % 7.1 % (0-4.5); HEMATOCRIT 36.4 % (32.4-45.2); HEMOGLOBIN 12.3 GM/dL (10.7-15.3); LYMPH % 23.1 % (8-40); MCH 30.9 pg (25.7-33.7); MCHC 33.9 g/dl (32.0-36.0); MEAN CELL VOLUME 91.2 fl (80-96); MEAN PLT VOLUME 9.8 fl (7.5-11.1); MONO % 10.3 % (3.8-10.2); NEUT % 59.1 % (42.8-82.8); PLATELET COUNT 172 K/MM3 (134-434); RBC 3.99 M/mm3 (3.60-5.2); RDW 13.8 % (11.6-15.6)
[2017-10-19 07:50] LABS: ANION GAP 8 (8-16); BLOOD UREA NITROGEN 12 mg/dL (7-18); CALCIUM 8.3 mg/dL (8.5-10.1); CHLORIDE 109 mmol/L (98-107); CO2 25 mmol/L (21-32); CREATININE 0.8 mg/dL (0.55-1.02); GLUCOSE,RANDOM 155 mg/dL (74-106); POTASSIUM 3.7 mmol/L (3.5-5.1); SGOT/AST 17 U/L (15-37); SGPT/ALT 17 U/L (12-78); SODIUM 142 mmol/L (136-145)
[2017-10-19 07:51] LABS: ALK PHOS 47 U/L (45-117); BILIRUBIN,TOTAL 0.9 mg/dL (0.2-1.0); TOT PROT 6.3 g/dl (6.4-8.2)
--- NOTE | 2017-10-19 07:53 | PN ---
Progress Note (short form) - Note Progress Note: Chief Complaint: Events noted, notes reviewed, family member (daughter) at the bedside, complains of persistent weakness, denies any chest pain or dyspnea History of Present Illness: Seen nad examined on telemetry. Events noted, notes reviewed, family member ( daughter) at the bedside, complains of persistent weakness, denies any chest pain or dyspnea MRI results noted acute CVA, recommend REENA and extended monitoring including possible implantable loop recorder (loop recorder implant can be done as outpatient) Echocardiography revealed normal LV size and function with LVEF 55-60%, severe LA dilatation, modertae MR, AI and TR with no evidence of pulmonary HTN Medications: Current Medications Acetaminophen (Tylenol -) 650 mg PO Q4H PRN PRN Reason: PAIN LEVEL 1 - 3 Last Admin: 10/18/17 20:52 Dose: 650 mg Aspirin (Ecotrin -) 81 mg PO DAILY [facility] Last Admin: 10/18/17 10:24 Dose: 81 mg Atorvastatin Calcium (Lipitor -) 10 mg PO HS [facility] Last Admin: 10/18/17 21:00 Dose: 10 mg Glipizide (Glucotrol -) 5 mg PO BID@0700,1630 [facility] Last Admin: 10/19/17 06:39 Dose: 5 mg Sodium Chloride (Normal Saline -) 1,000 mls @ 42 mls/hr IV ASDIR [facility] Last Admin: 10/18/17 23:49 Dose: 42 mls/hr Insulin Aspart (Novolog Vial Sliding Scale -) 1 vial SQ ACHS [facility]; Protocol Last Admin: 10/19/17 06:39 Dose: Not Given Losartan Potassium (Cozaar -) 50 mg PO DAILY [facility] Last Admin: 10/18/17 10:24 Dose: 50 mg Metformin HCl (Glucophage -) 500 mg PO BID@0700,1630 [facility] Last Admin: 10/19/17 06:39 Dose: 500 mg Metoprolol Succinate (Toprol Xl -) 25 mg PO DAILY [facility] Last Admin: 10/18/17 10:30 Dose: 25 mg Ondansetron HCl (Zofran Injection) 4 mg IVPUSH Q6H [facility] Last Admin: 10/19/17 03:16 Dose: 4 mg Review of Systems - Review of Systems Constitutional: denies: Chills or Fever Cardiovascular: as noted above Respiratory: denies: Cough or Sputum Production Neurological: reports: Change in Speech and Unsteady Gait with Weakness. denies : Dizziness, Headache, Seizure or Syncope Vital Signs: Last Vital Signs Temp Pulse Resp BP Pulse Ox 98.1 F 67 18 132/66 96 10/19/17 07:35 10/19/17 07:35 10/19/17 07:35 10/19/17 07:35 10/18/17 21:00 Intake & Output 10/16/17 10/17/17 10/18/17 10/19/17 23:59 23:59 23:59 23:59 Intake Total 210 1256 624 Balance 210 1256 624 Weight 95 lb 98 lb HEENT: Atraumatic Neck: Supple Negative JVD Cardiovascular: S1 S2 Regular Rate and Rhythm Respiratory: Diminished Breath Sounds at the Bases with Course Crepitus Left Base Gastrointestinal: Soft Benign Normal Bowel Sounds Ext: No Edema Labs: CBC, BMP 10/19/17 06:20 Assessment/Plan ASSESSMENT: 1. CVA with right sided weakness, evidence of a new stroke on MRI 2. 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 Hypertension 5. Diabetes mellitus 6. Hypercholesterolemia 7. Carotid artery disease, moderate in severity left side unlikely to be the culprit for the current event PLAN: 1. Continue Statin therapy 2. Continue ASA therapy for now but as outlined LA dilatation on echocardiography raises the possibility of PAF, recommend proceeding with REENA and extended monitoring possible implantable loop recorder 3. Continue Cozaar 4. Continue Toprol XL 5. As outlined above in reference to additional evaluation Above was reviewed in detail with the family member at the bedside Shakeel Roper MD
--- NOTE | 2017-10-19 09:51 | PN ---
Progress Note, Physician Chief Complaint: Pt seen and examined Rt sided weakness still present afebrile,alert and oriented,no progression of symptoms MRI brain report shows acute/Subacute lacunar infarct in the rt side of medulla oblangata ECHO reprt shows moderate MR,TR and AI,dialatation of Lt atrium Cardiology rec regarding REENA noted neurology and cardiology f/u appreciated speech and swollow evaluation reprt noted,rec purie diet carotid doppler report noted,Lt internal carotid artery 50_66% stenosis - Current Medication List Current Medications: Active Medications Acetaminophen (Tylenol -) 650 mg PO Q4H PRN PRN Reason: PAIN LEVEL 1 - 3 Last Admin: 10/18/17 20:52 Dose: 650 mg Aspirin (Ecotrin -) 81 mg PO DAILY [facility] Last Admin: 10/18/17 10:24 Dose: 81 mg Atorvastatin Calcium (Lipitor -) 10 mg PO HS [facility] Last Admin: 10/18/17 21:00 Dose: 10 mg Glipizide (Glucotrol -) 5 mg PO BID@0700,1630 [facility] Last Admin: 10/19/17 06:39 Dose: 5 mg Sodium Chloride (Normal Saline -) 1,000 mls @ 42 mls/hr IV ASDIR [facility] Last Admin: 10/18/17 23:49 Dose: 42 mls/hr Insulin Aspart (Novolog Vial Sliding Scale -) 1 vial SQ ACHS [facility]; Protocol Last Admin: 10/19/17 06:39 Dose: Not Given Losartan Potassium (Cozaar -) 50 mg PO DAILY [facility] Last Admin: 10/18/17 10:24 Dose: 50 mg Metformin HCl (Glucophage -) 500 mg PO BID@0700,1630 [facility] Last Admin: 10/19/17 06:39 Dose: 500 mg Metoprolol Succinate (Toprol Xl -) 25 mg PO DAILY [facility] Last Admin: 10/18/17 10:30 Dose: 25 mg Ondansetron HCl (Zofran Injection) 4 mg IVPUSH Q6H [facility] Last Admin: 10/19/17 03:16 Dose: 4 mg - Objective Vital Signs: Vital Signs Temperature 98.1 F 10/19/17 07:35 Pulse Rate 67 10/19/17 07:35 Respiratory Rate 18 10/19/17 07:35 Blood Pressure 132/66 10/19/17 07:35 O2 Sat by Pulse Oximetry (%) 96 10/18/17 21:00 Constitutional: Yes: No Distress Eyes: Yes: Conjunctiva Clear HENT: Yes: Atraumatic, Normocephalic Neck: Yes: Supple, Trachea Midline Cardiovascular: Yes: Regular Rate and Rhythm Respiratory: Yes: Regular, CTA Bilaterally Gastrointestinal: Yes: Normal Bowel Sounds Extremities: Yes: WNL Edema: No Peripheral Pulses WNL: Yes Neurological: Yes: WNL, Alert, Oriented, Cran Nerves II-XII Intact, Unsteady Gait, Weakness (Rt sided weakness) Psychiatric: Yes: Alert, Oriented Labs: CBC, BMP 10/19/17 06:20 10/19/17 06:20 INR, PTT INR 1.17 (0.82-1.09) H 10/16/17 22:15 - ....Imaging MRI: Report Reviewed Assessment/Plan CVA with Rt sided weakness,New Infarct in MRI Moderate AI,MR,TR WITH diastolic dysfunction Uncontrooled blood sugar/DM HTN,hypercholestrolemia LT carotid stenosis PLAN Awaiting REENA PT monitor BP monitor Blood sugar Continue STATIN Vascular surgery consult pending
--- NOTE | 2017-10-19 09:57 | PN ---
Progress Note (short form) - Note Progress Note: Neurology History of Present Illness The patient is a 87 year old female, accompanied by family, with a significant past medical history of HTN, diabetes, and HLD who presents to the ED with reprotedly with complaints of generalized weakness and lightheadedness. As per notes, the patient did not go to yarsanism this morning secondary to her not feeling well. Around 1pm earlier Tuesday, the patient had a sudden onset of generalized weakness and lightheadedness and is unable to walk secondary to feeling lightheaded. There was mention of sudden onset of right arm and right leg tingling around 3:30pm, that resolved within 45 minutes. Family also states the patient had 5 episodes of vomiting and slight slurred speech. She came to the hospital and was not considered TPA candidate as symptoms resolved. 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 Started her on ASA 81, ordered MRI , Carotid Doppler, Echo, speech eval, PT. Of note her sugar was elevated to almost 350 and discussed this can cause significant neurologic changes that can mimic CVA like symptoms. Carotids completed and 50-69% stenosis of L ICA. Echo also completed, normal LV function, EF 55-60%, reviewed with family member. MRI completed and reviewed and consistent with acute cva in medulla. Discussed with family, likely to need rehab. Discussed with social services manager. Active Medications Acetaminophen (Tylenol -) 650 mg PO Q4H PRN PRN Reason: PAIN LEVEL 1 - 3 Last Admin: 10/18/17 20:52 Dose: 650 mg Aspirin (Ecotrin -) 81 mg PO DAILY [facility] Last Admin: 10/18/17 10:24 Dose: 81 mg Atorvastatin Calcium (Lipitor -) 10 mg PO HS [facility] Last Admin: 10/18/17 21:00 Dose: 10 mg Glipizide (Glucotrol -) 5 mg PO BID@0700,1630 [facility] Last Admin: 10/19/17 06:39 Dose: 5 mg Sodium Chloride (Normal Saline -) 1,000 mls @ 42 mls/hr IV ASDIR [facility] Last Admin: 10/18/17 23:49 Dose: 42 mls/hr Insulin Aspart (Novolog Vial Sliding Scale -) 1 vial SQ ACHS [facility]; Protocol Last Admin: 10/19/17 06:39 Dose: Not Given Losartan Potassium (Cozaar -) 50 mg PO DAILY [facility] Last Admin: 10/18/17 10:24 Dose: 50 mg Metformin HCl (Glucophage -) 500 mg PO BID@0700,1630 [facility] Last Admin: 10/19/17 06:39 Dose: 500 mg Metoprolol Succinate (Toprol Xl -) 25 mg PO DAILY [facility] Last Admin: 10/18/17 10:30 Dose: 25 mg Ondansetron HCl (Zofran Injection) 4 mg IVPUSH Q6H [facility] Last Admin: 10/19/17 03:16 Dose: 4 mg *Physical Exam Vital Signs Period Temp Pulse Resp BP Sys/Campbell Pulse Ox Last 24 Hr 97.7 F-98.5 F 63-73 18-20 132-160/64-70 95-96 Awake and alert. No acute distress. HEENT: Normocephalic, atraumatic. PERRLA, EOMI. No conjunctival pallor. Sclera are non- icteric. Moist mucous membranes. Oropharynx is clear. NECK: Supple. Full ROM. No JVD. Carotid pulses 2+ and symmetric, without bruits. No thyromegaly. No lymphadenopathy. CARDIOVASCULAR: Regular rate and rhythm. No murmurs, rubs, or gallops. Distal pulses are 2+ and symmetric. PULMONARY: No evidence of respiratory distress. Lungs clear to auscultation bilaterally. No wheezing, rales or rhonchi. ABDOMINAL: Soft. Non-tender. Non-distended. No rebound or guarding. No organomegaly. Normoactive bowel sounds. MUSCULOSKELETAL Normal range of motion at all joints. No bony deformities or tenderness. No CVA tenderness. EXTREMITIES: No cyanosis. No clubbing. No edema. No calf tenderness. No pronator drift. SKIN: Warm and dry. Normal capillary refill. No rashes. No jaundice. NEUROLOGICAL: Alert, awake, appropriate. Slight R facial droop. No deficits to light touch and temperature in face, upper extremities and lower extremities. No motor deficits in the in face, upper extremities and lower extremities. Normoreflexic in the upper and lower extremities. Normal speech. Toes are down-going bilaterally. No facial asymmetry. PSYCHIATRIC: Cooperative. Good eye contact. Appropriate mood and affect. CBCD WBC 7.0 K/mm3 (4.0-10.0) 10/19/17 06:20 RBC 3.99 M/mm3 (3.60-5.2) 10/19/17 06:20 Hgb 12.3 GM/dL (10.7-15.3) 10/19/17 06:20 Hct 36.4 % (32.4-45.2) 10/19/17 06:20 MCV 91.2 fl (80-96) 10/19/17 06:20 MCHC 33.9 g/dl (32.0-36.0) 10/19/17 06:20 RDW 13.8 % (11.6-15.6) 10/19/17 06:20 Plt Count 172 K/MM3 (134-434) 10/19/17 06:20 MPV 9.8 fl (7.5-11.1) 10/19/17 06:20 CMP Sodium 142 mmol/L (136-145) 10/19/17 06:20 Potassium 3.7 mmol/L (3.5-5.1) 10/19/17 06:20 Chloride 109 mmol/L (98-107) H 10/19/17 06:20 Carbon Dioxide 25 mmol/L (21-32) 10/19/17 06:20 Anion Gap 8 (8-16) 10/19/17 06:20 BUN 12 mg/dL (7-18) 10/19/17 06:20 Creatinine 0.8 mg/dL (0.55-1.02) 10/19/17 06:20 Creat Clearance w eGFR > 60 (>60) 10/19/17 06:20 Calcium 8.3 mg/dL (8.5-10.1) L 10/19/17 06:20 Total Bilirubin 0.9 mg/dL (0.2-1.0) D 10/19/17 06:20 AST 17 U/L (15-37) 10/19/17 06:20 ALT 17 U/L (12-78) 10/19/17 06:20 Alkaline Phosphatase 47 U/L (45-117) 10/19/17 06:20 Total Protein 6.3 g/dl (6.4-8.2) L 10/19/17 06:20 Albumin 3.0 g/dl (3.4-5.0) L 10/19/17 06:20 - RADIOLOGY CT head reviewed Carotid Doppler reviewed Echo Reviewed MRI brain reviewed Plan: 87 year old female, accompanied by family, with a significant past medical history of HTN, diabetes, and HLD who presents to the ED with reprotedly with complaints of generalized weakness and lightheadedness. As per notes, the patient did not go to yarsanism this morning secondary to her not feeling well. Around 1pm earlier Tuesday, the patient had a sudden onset of generalized weakness and lightheadedness and is unable to walk secondary to feeling lightheaded. There was mention of sudden onset of right arm and right leg tingling around 3:30pm, that resolved within 45 minutes. Family also states the patient had 5 episodes of vomiting and slight slurred speech. She came to the hospital and was not considered TPA candidate as symptoms resolved. 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 Started her on ASA 81, not taking at home MRI brain confirmed medullary CVA PT tolerated Glucose remains elevated, tighter glycemic control, A1C goal of <6 Monitor LDL (currently 77), continue Statin Monitor BP, goal range <140/90 for now, <130/80 as outpatient Hydration as tolerated, appears malnourished rehab to be considered discussed with social services manager ARASELI ashley
--- NOTE | 2017-10-19 10:18 | PN ---
Progress Note, PERSONAL CARE ATTENDANT - Note Progress Note: MRI brain- acute/Subacute lacunar infarct in the rt side of medulla oblongata Speech at baseline. Pt denies difficulty swallowing, tolerating reg diet/thin liquids. Pt did cough once last night, following head extension while taking her medication. Pt educated on head flexion while eating and drinking. If cough/congestion, throat clearing, MBS to r/o stasis, silent aspiration.
[2017-10-19] MEDS: metoPROLOL SUCCINATE 25 MG TAB.SR.24H (FP) PO SCH (10:30)
[2017-10-19] MEDS: LOSARTAN POTASSIUM 50 MG TABLET (FP) PO SCH (10:30)
[2017-10-19] MEDS: ASPIRIN COATED 81 MG TABLET.EC PO SCH (10:30)
--- NOTE | 2017-10-19 12:25 | CONSULT ---
Consult - History of Present Illness History of Present Illness: 87 year old female admitted after sudden onset of generalized weakness and lightheadedness. There was sudden onset of right arm and leg tingling and episodes of slurred speech that resolved within 45 minutes. No prior history of stroke or TIA. - Past Medical History Cardio/Vascular: Yes: HTN, Hyperlipdemia Endocrine: Yes: Diabetes Mellitus - Past Surgical History Past Surgical History: Yes: Cataract Removal, Hysterectomy - Alcohol/Substance Use Hx Alcohol Use: No - Smoking History Smoking history: Never smoked Have you smoked in the past 12 months: No Home Medications - Allergies Allergies/Adverse Reactions: Allergies Allergy/AdvReac Type Severity Reaction Status Date / Time No Known Allergies Allergy Verified 10/16/17 19:54 - Home Medications Home Medications: Ambulatory Orders Metformin HCl 500 mg PO BID 10/16/15 Simvastatin 10 mg PO DAILY 10/16/15 Physical Exam Vital Signs: Vital Signs Temperature 98.1 F 10/19/17 07:35 Pulse Rate 67 10/19/17 07:35 Respiratory Rate 18 10/19/17 07:35 Blood Pressure 132/66 10/19/17 07:35 O2 Sat by Pulse Oximetry (%) 96 10/18/17 21:00 Labs: CBC, BMP 10/19/17 06:20 10/19/17 06:20 Imaging - Results Ultrasound: Image Reviewed (Carotid Duplex shows moderate stenosis of left ICA, 50-69%.) Problem List - Problems (1) Carotid stenosis, left Assessment/Plan: Recent neurologic symptoms affecting both cerebral hemispheres. Moderate left ICA stenosis is unlikely to be a causative factor. No indication for intervention for the stenosis at this time. Code(s): I65.22 - OCCLUSION AND STENOSIS OF LEFT CAROTID ARTERY
[2017-10-19 15:39] LABS: MAGNESIUM 1.9 mg/dL (1.8-2.4)
[2017-10-19] MEDS: ACETAMINOPHEN 325 MG TABLET (FP) PO PRN (15:39)
[2017-10-19] MEDS: ATORVASTATIN CA 10 MG TABLET (FP) PO SCH (21:01)
[2017-10-19] MEDS: SODIUM CHLORIDE 1,000 ML IV SCH (21:56)
[2017-10-20] MEDS: ONDANSETRON 4 MG/2 ML VIAL IVPUSH SCH ×2 (02:59→09:01)
[2017-10-20] MEDS: INSULIN SLIDING SCALE (NOVOLOG) 1 VIAL SQ SCH ×2 (06:06→12:08)
[2017-10-20] MEDS: metFORMIN HCL 500 MG TABLET (FP) PO SCH (06:08)
[2017-10-20] MEDS: glipiZIDE 5 MG TABLET (FP) PO SCH (06:08)
[2017-10-20] MEDS: ASPIRIN COATED 81 MG TABLET.EC PO SCH (09:01)
[2017-10-20] MEDS: metoPROLOL SUCCINATE 25 MG TAB.SR.24H (FP) PO SCH (09:01)
[2017-10-20] MEDS: LOSARTAN POTASSIUM 50 MG TABLET (FP) PO SCH (09:02)
--- NOTE | 2017-10-20 09:07 | PN ---
Progress Note, Physician Chief Complaint: Events noted Not in distress History of Present Illness: Patient was seen and examined. Awake and alert. Chart was reviewed Denies chest pain, SOB or palpitations - Current Medication List Current Medications: Active Medications Acetaminophen (Tylenol -) 650 mg PO Q4H PRN PRN Reason: PAIN LEVEL 1 - 3 Last Admin: 10/19/17 15:39 Dose: 650 mg Aspirin (Ecotrin -) 81 mg PO DAILY [facility] Last Admin: 10/19/17 10:30 Dose: 81 mg Atorvastatin Calcium (Lipitor -) 10 mg PO HS [facility] Last Admin: 10/19/17 21:01 Dose: 10 mg Glipizide (Glucotrol -) 5 mg PO BID@0700,1630 [facility] Last Admin: 10/20/17 06:08 Dose: 5 mg Sodium Chloride (Normal Saline -) 1,000 mls @ 42 mls/hr IV ASDIR [facility] Last Admin: 10/19/17 21:56 Dose: 42 mls/hr Insulin Aspart (Novolog Vial Sliding Scale -) 1 vial SQ ACHS [facility]; Protocol Last Admin: 10/20/17 06:06 Dose: Not Given Losartan Potassium (Cozaar -) 50 mg PO DAILY [facility] Last Admin: 10/19/17 10:30 Dose: 50 mg Metformin HCl (Glucophage -) 500 mg PO BID@0700,1630 [facility] Last Admin: 10/20/17 06:08 Dose: 500 mg Metoprolol Succinate (Toprol Xl -) 25 mg PO DAILY [facility] Last Admin: 10/19/17 10:30 Dose: 25 mg Ondansetron HCl (Zofran Injection) 4 mg IVPUSH Q6H [facility] Last Admin: 10/20/17 02:59 Dose: 4 mg - Objective Vital Signs: Vital Signs Temperature 98.5 F 10/20/17 06:00 Pulse Rate 71 10/20/17 06:00 Respiratory Rate 20 10/20/17 06:00 Blood Pressure 142/60 10/20/17 06:00 O2 Sat by Pulse Oximetry (%) 94 L 10/19/17 21:00 Eyes: Yes: PERRL HENT: Yes: Atraumatic Neck: Yes: Supple Cardiovascular: Yes: Regular Rate and Rhythm, S1, S2 Respiratory: Yes: CTA Bilaterally Gastrointestinal: Yes: Normal Bowel Sounds, Soft. No: Tenderness Edema: No Additional Findings/Remarks: - Review of Systems Constitutional: denies: Chills, Fever Cardiovascular: denies: Chest Pain, Palpitations, Shortness of Breath Respiratory: denies: Cough, Hemoptysis, Orthopnea, PND, SOB, SOB on Exertion Neurological: reports: Change in Speech, Numbness, Unsteady Gait, Weakness. denies: Dizziness, Headache, Seizure, Syncope Labs: CBC, BMP 10/19/17 06:20 10/19/17 06:20 INR, PTT INR 1.17 (0.82-1.09) H 10/16/17 22:15 Problem List - Problems (1) CVA (cerebral vascular accident) Code(s): I63.9 - CEREBRAL INFARCTION, UNSPECIFIED Qualifiers: CVA mechanism: unspecified Qualified Code(s): I63.9 - Cerebral infarction, unspecified (2) HTN (hypertension) Code(s): I10 - ESSENTIAL (PRIMARY) HYPERTENSION Qualifiers: Hypertension type: essential hypertension Qualified Code(s): I10 - Essential (primary) hypertension (3) Hypercholesterolemia Code(s): E78.00 - PURE HYPERCHOLESTEROLEMIA, UNSPECIFIED (4) Diabetes mellitus Code(s): E11.9 - TYPE 2 DIABETES MELLITUS WITHOUT COMPLICATIONS (5) TIA (transient ischemic attack) Code(s): G45.9 - TRANSIENT CEREBRAL ISCHEMIC ATTACK, UNSPECIFIED Qualifiers: Transient cerebral ischemia type: unspecified Qualified Code(s): G45.9 - Transient cerebral ischemic attack, unspecified Assessment/Plan 1. CVA/TIA with right sided weakness - MRI brain notes acute/subacute lacunar infarct both right and left 2. Hypertension 3. Hypercholesterolemia 4. Diabetes mellitus 5. Carotid artery disease PLAN: 1. Continue Statin (Atorvastatin) therapy 2. Continue ASA 81 mg QD 3. Continue Losartan and Metoprolol ER 4. Continue with diabetes mellitus regimen 5. Patient is going to SNF. Once discharged from rehab, she should follow up in the office. Further cardiac work up can be done as outpatient including REENA and extended external loop recording. So far, lunchroom monitor does not reveal any atrial arrhythmias 6. Neuro input to follow prior to discharge 7. Vascular surgery input noted Further plans are to follow Del Maharaj MD
--- NOTE | 2017-10-20 09:23 | PN ---
Progress Note (short form) - Note Progress Note: Neurology History of Present Illness The patient is a 87 year old female, accompanied by family, with a significant past medical history of HTN, diabetes, and HLD who presents to the ED with reprotedly with complaints of generalized weakness and lightheadedness. As per notes, the patient did not go to druze this morning secondary to her not feeling well. Around 1pm earlier Tuesday, the patient had a sudden onset of generalized weakness and lightheadedness and is unable to walk secondary to feeling lightheaded. There was mention of sudden onset of right arm and right leg tingling around 3:30pm, that resolved within 45 minutes. Family also states the patient had 5 episodes of vomiting and slight slurred speech. She came to the hospital and was not considered TPA candidate as symptoms resolved. 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 Started her on ASA 81. Of note her sugar was elevated to almost 350 and discussed this can cause significant neurologic changes that can mimic CVA like symptoms. Carotids completed and 50- 69% stenosis of L ICA. Echo also completed, normal LV function, EF 55-60%, reviewed with family member. MRI completed and reviewed and consistent with acute cva in R medulla. Vascular note reviewed, no intervention and not likely etiology. PLan for rehab, improving and starting to ambulate. Active Medications Acetaminophen (Tylenol -) 650 mg PO Q4H PRN PRN Reason: PAIN LEVEL 1 - 3 Last Admin: 10/19/17 15:39 Dose: 650 mg Aspirin (Ecotrin -) 81 mg PO DAILY [facility] Last Admin: 10/20/17 09:01 Dose: 81 mg Atorvastatin Calcium (Lipitor -) 10 mg PO HS [facility] Last Admin: 10/19/17 21:01 Dose: 10 mg Glipizide (Glucotrol -) 5 mg PO BID@0700,1630 [facility] Last Admin: 10/20/17 06:08 Dose: 5 mg Sodium Chloride (Normal Saline -) 1,000 mls @ 42 mls/hr IV ASDIR [facility] Last Admin: 10/19/17 21:56 Dose: 42 mls/hr Insulin Aspart (Novolog Vial Sliding Scale -) 1 vial SQ ACHS [facility]; Protocol Last Admin: 10/20/17 06:06 Dose: Not Given Losartan Potassium (Cozaar -) 50 mg PO DAILY [facility] Last Admin: 10/20/17 09:02 Dose: 50 mg Metformin HCl (Glucophage -) 500 mg PO BID@0700,1630 [facility] Last Admin: 10/20/17 06:08 Dose: 500 mg Metoprolol Succinate (Toprol Xl -) 25 mg PO DAILY [facility] Last Admin: 10/20/17 09:01 Dose: 25 mg Ondansetron HCl (Zofran Injection) 4 mg IVPUSH Q6H [facility] Last Admin: 10/20/17 09:01 Dose: 4 mg *Physical Exam Vital Signs Temperature 98.5 F 10/20/17 06:00 Pulse Rate 71 10/20/17 06:00 Respiratory Rate 20 10/20/17 06:00 Blood Pressure 142/60 10/20/17 06:00 O2 Sat by Pulse Oximetry (%) 94 L 10/19/17 21:00 Awake and alert. No acute distress. HEENT: Normocephalic, atraumatic. PERRLA, EOMI. No conjunctival pallor. Sclera are non- icteric. Moist mucous membranes. Oropharynx is clear. NECK: Supple. Full ROM. No JVD. Carotid pulses 2+ and symmetric, without bruits. No thyromegaly. No lymphadenopathy. CARDIOVASCULAR: Regular rate and rhythm. No murmurs, rubs, or gallops. Distal pulses are 2+ and symmetric. PULMONARY: No evidence of respiratory distress. Lungs clear to auscultation bilaterally. No wheezing, rales or rhonchi. ABDOMINAL: Soft. Non-tender. Non-distended. No rebound or guarding. No organomegaly. Normoactive bowel sounds. MUSCULOSKELETAL Normal range of motion at all joints. No bony deformities or tenderness. No CVA tenderness. EXTREMITIES: No cyanosis. No clubbing. No edema. No calf tenderness. No pronator drift. SKIN: Warm and dry. Normal capillary refill. No rashes. No jaundice. NEUROLOGICAL: Alert, awake, appropriate. Slight R facial droop. No deficits to light touch and temperature in face, upper extremities and lower extremities. No motor deficits in the in face, upper extremities and lower extremities. Normoreflexic in the upper and lower extremities. Normal speech. Toes are down-going bilaterally. No facial asymmetry. PSYCHIATRIC: Cooperative. Good eye contact. Appropriate mood and affect. CBCD WBC 7.0 K/mm3 (4.0-10.0) 10/19/17 06:20 RBC 3.99 M/mm3 (3.60-5.2) 10/19/17 06:20 Hgb 12.3 GM/dL (10.7-15.3) 10/19/17 06:20 Hct 36.4 % (32.4-45.2) 10/19/17 06:20 MCV 91.2 fl (80-96) 10/19/17 06:20 MCHC 33.9 g/dl (32.0-36.0) 10/19/17 06:20 RDW 13.8 % (11.6-15.6) 10/19/17 06:20 Plt Count 172 K/MM3 (134-434) 10/19/17 06:20 MPV 9.8 fl (7.5-11.1) 10/19/17 06:20 CMP Sodium 142 mmol/L (136-145) 10/19/17 06:20 Potassium 3.7 mmol/L (3.5-5.1) 10/19/17 06:20 Chloride 109 mmol/L (98-107) H 10/19/17 06:20 Carbon Dioxide 25 mmol/L (21-32) 10/19/17 06:20 Anion Gap 8 (8-16) 10/19/17 06:20 BUN 12 mg/dL (7-18) 10/19/17 06:20 Creatinine 0.8 mg/dL (0.55-1.02) 10/19/17 06:20 Creat Clearance w eGFR > 60 (>60) 10/19/17 06:20 Calcium 8.3 mg/dL (8.5-10.1) L 10/19/17 06:20 Total Bilirubin 0.9 mg/dL (0.2-1.0) D 10/19/17 06:20 AST 17 U/L (15-37) 10/19/17 06:20 ALT 17 U/L (12-78) 10/19/17 06:20 Alkaline Phosphatase 47 U/L (45-117) 10/19/17 06:20 Total Protein 6.3 g/dl (6.4-8.2) L 10/19/17 06:20 Albumin 3.0 g/dl (3.4-5.0) L 10/19/17 06:20 - RADIOLOGY CT head reviewed Carotid Doppler reviewed Echo Reviewed MRI brain reviewed Plan: 87 year old female, accompanied by family, with a significant past medical history of HTN, diabetes, and HLD who presents to the ED with reprotedly with complaints of generalized weakness and lightheadedness. As per notes, the patient did not go to druze this morning secondary to her not feeling well. Around 1pm earlier Tuesday, the patient had a sudden onset of generalized weakness and lightheadedness and is unable to walk secondary to feeling lightheaded. There was mention of sudden onset of right arm and right leg tingling around 3:30pm, that resolved within 45 minutes. Family also states the patient had 5 episodes of vomiting and slight slurred speech. She came to the hospital and was not considered TPA candidate as symptoms resolved. 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 Started her on ASA 81, not taking at home MRI brain confirmed R medullary CVA PT tolerated, plan si for rehab Glucose remains elevated, tighter glycemic control, A1C goal of <6 Has been having sweet fruits, discussed adjusting diet and switching to veges Vascular note reviewed, no intervention Monitor LDL (currently 77), continue Statin Monitor BP, goal range <140/90 for now, <130/80 as outpatient Hydration as tolerated, appears malnourished Ok for rehab placement DVT ppx
--- NOTE | 2017-10-20 09:26 | PN ---
Progress Note, Physician Chief Complaint: Pt seen and examined Rt sided weakness still present,improving afebrile,alert and oriented,no progression of symptoms Neurology and cardiology cleared karin pt for transfer to SNF MRI brain report shows acute/Subacute lacunar infarct in the rt side of medulla oblangata ECHO reprt shows moderate MR,TR and AI,dialatation of Lt atrium Cardiology rec regarding REENA as outpatient noted neurology and cardiology,vascular surgery f/u appreciated carotid doppler report noted,Lt internal carotid artery 50_66% stenosis Pt is awiting for transfer to SNF - Current Medication List Current Medications: Active Medications Acetaminophen (Tylenol -) 650 mg PO Q4H PRN PRN Reason: PAIN LEVEL 1 - 3 Last Admin: 10/19/17 15:39 Dose: 650 mg Aspirin (Ecotrin -) 81 mg PO DAILY [facility] Last Admin: 10/20/17 09:01 Dose: 81 mg Atorvastatin Calcium (Lipitor -) 10 mg PO HS [facility] Last Admin: 10/19/17 21:01 Dose: 10 mg Glipizide (Glucotrol -) 5 mg PO BID@0700,1630 [facility] Last Admin: 10/20/17 06:08 Dose: 5 mg Sodium Chloride (Normal Saline -) 1,000 mls @ 42 mls/hr IV ASDIR [facility] Last Admin: 10/19/17 21:56 Dose: 42 mls/hr Insulin Aspart (Novolog Vial Sliding Scale -) 1 vial SQ ACHS [facility]; Protocol Last Admin: 10/20/17 06:06 Dose: Not Given Losartan Potassium (Cozaar -) 50 mg PO DAILY [facility] Last Admin: 10/20/17 09:02 Dose: 50 mg Metformin HCl (Glucophage -) 500 mg PO BID@0700,1630 [facility] Last Admin: 10/20/17 06:08 Dose: 500 mg Metoprolol Succinate (Toprol Xl -) 25 mg PO DAILY [facility] Last Admin: 10/20/17 09:01 Dose: 25 mg Ondansetron HCl (Zofran Injection) 4 mg IVPUSH Q6H [facility] Last Admin: 10/20/17 09:01 Dose: 4 mg - Objective Vital Signs: Vital Signs Temperature 98.5 F 10/20/17 06:00 Pulse Rate 71 10/20/17 06:00 Respiratory Rate 20 10/20/17 06:00 Blood Pressure 142/60 10/20/17 06:00 O2 Sat by Pulse Oximetry (%) 94 L 10/19/17 21:00 Constitutional: Yes: No Distress Eyes: Yes: Conjunctiva Clear HENT: Yes: Atraumatic Neck: Yes: Supple Cardiovascular: Yes: Regular Rate and Rhythm Respiratory: Yes: Regular, CTA Bilaterally Gastrointestinal: Yes: Normal Bowel Sounds Musculoskeletal: Yes: WNL Extremities: Yes: Other (mild RT sided weakness) Edema: No Peripheral Pulses WNL: Yes Neurological: Yes: WNL, Alert, Oriented, Weakness (rt sided weakness) Psychiatric: Yes: Alert, Oriented Labs: CBC, BMP 10/19/17 06:20 10/19/17 06:20 INR, PTT INR 1.17 (0.82-1.09) H 10/16/17 22:15 Assessment/Plan CVA with Rt sided weakness,New Infarct in MRI Moderate AI,MR,TR WITH diastolic dysfunction Uncontrooled blood sugar/DM HTN,hypercholestrolemia LT carotid stenosis PLAN REENA and extended external loop recording as Outpatient PT monitor BP monitor Blood sugar Continue STATIN and asa d/c to SNF
[2017-10-20 14:20] VITALS: BP 151/68; PULSE 70; TEMP 97.3
--- NOTE | 2017-10-20 14:46 | DS ---
DATE OF ADMISSION: 10/17/2017 DATE OF DISCHARGE: DATE OF DICTATION: 10/20/2017 Patient is an 87-year-old female with a history of hypertension, hyperlipidemia , and diabetes, admitted with right-sided weakness and slight slurred speech and vomiting and nausea. At the time of admission, vitals were stable, temperature 97.8, pulse rate 66, respirations 18, blood pressure 129/56, saturation 99. Medications reviewed. Patient is on metformin 500 b.i.d. and simvastatin 10 mg p.o. daily. ALLERGIES: No known drug allergy. At the time of admission, the chest x-ray shows mild cardiomegaly. A CAT scan of the head shows old caudate nucleus infarct. Carotid ultrasound showed 50% to 60% left internal carotid stenosis. EKG shows sinus rhythm with first-degree AV block, possible left atrial enlargement, and when compared to the ECG of June 2015, premature ventricular complexes are no longer present. LABORATORY DATA: Labs show on the day of admission, sodium 137, potassium 4.3, chloride 102, bicarbonate of 26, BUN 20, creatinine 0.9. Random glucose 340. Cardiac enzymes x1 negative. Lipid profile was normal. Liver enzymes were normal. PT 13.2, INR 1.17. CBC: WBC 8.7, hemoglobin 13.3, hematocrit 39.5, platelets 171. Urine: Glucose 3+, ketones 1+. Hemoglobin A1c was 10.2. Patient admitted in telemetry. Cardiology consult, neurology consult, and vascular surgery consult called. MRA of the brain done that shows acute/subacute lacunar infarct in right side of the medulla oblongata measuring approximately 6 mm; moderate atrophy and chronic microvascular ischemic changes; left anterior periventricular, old lacunar infarct; and chronic infarct in the right parietal lobe. Patient started on losartan and Toprol-XL 1 daily and aspirin started. After admission, there was no progression of symptoms. Physical therapy done. Patient started ambulating with assistance, and the neurological findings were stable. Cardiology recommended outpatient __TEE__ and loop recording to rule out any arrhythmia. Patient was stable during hospitalization and discharged to detention facility, [facility], for physical therapy and further management. REC to follow with Cardiology and primary after discharge. Recommend to continue metformin, Glucotrol, aspirin, Lipitor, metoprolol, and losartan. Patient is stable at the time of discharge. JESSICA ENGLAND M.D. [id number] MTDD
== END 2017-10-20 16:01 | DRG 65 ==
LOC: JER 19:46 → JERBED 10-17 01:24 → J4S 10-17 16:44
PROVIDERS: ADMIT Family Medicine; ATTEND Family Medicine
DX: I63.9 Cerebral infarction, unspecified (principal); I69.351 Hemiplegia and hemiparesis following cerebral infarction affecting right dominant side; Z68.1 Body mass index [BMI] 19.9 or less, adult; E46 Unspecified protein-calorie malnutrition; E11.65 Type 2 diabetes mellitus with hyperglycemia; I65.22 Occlusion and stenosis of left carotid artery; I69.828 Other speech and language deficits following other cerebrovascular disease; I11.0 Hypertensive heart disease with heart failure; E78.5 Hyperlipidemia, unspecified; Z79.84 Long term (current) use of oral hypoglycemic drugs; F03.90 Unspecified dementia, unspecified severity, without behavioral disturbance, psychotic disturbance, mood disturbance, and anxiety; R11.10 Vomiting, unspecified; I34.0 Nonrheumatic mitral (valve) insufficiency; I36.1 Nonrheumatic tricuspid (valve) insufficiency; I35.1 Nonrheumatic aortic (valve) insufficiency; I25.10 Atherosclerotic heart disease of native coronary artery without angina pectoris
CPT/HCPCS: 36415; 70450-TC; 70551-TC; 71045-TC-FY; 80053; 80061; 81003; 82009; 82465; 82550; 82962; 83036; 83605; 83718; 83721; 83735; 84478; 84484; 85025; 85610; 87040; 87086; 87186; 93005; 93010; 93306-TC; 93880-TC; 97116-GP; 97162-GP; 99283-25; J7030